=== PATIENT | female | born 1960 | race Hispanic/Latino ===

== ENCOUNTER 2018-04-10 17:17 | Inpatient (IN) | payer MEDICARE, MEDICAID ==
[2018-04-10 18:04] VITALS: BMI 26.9
--- NOTE | 2018-04-10 19:30 | C.PDOC ---
History Of Present Illness 57 year old female with PMHx of MS presents to the ED c/o acute exacerbation of lower back pain. Patient states she think MS exacerbation is causing her back pain. Patient is usually seen at [facility], patient unable to keep her story straight. Patient reports she only uses Dilaudid tablets at home for chronic pain. [place] [employer]TER reviewed showed patient had various prescriptions for oxycodone, ambien, alprazolam and morphine. Discussed case with Dr. Fabian chronic pain specialist in [place] claims patient does have chronic lower back pain issue. Patient also c/o various other issues like tremors associated with her MS exacerbation, lower leg edema. Time Seen by Provider: 04/10/18 18:16 Chief Complaint (Nursing): Back Pain History Per: Patient History/Exam Limitations: no limitations Onset/Duration Of Symptoms: Days Current Symptoms Are (Timing): Still Present Quality Of Discomfort: "Pain" Previous Symptoms: Back Pain Recent travel outside of the [place]: No Additional History Per: Patient Past Medical History Reviewed: Historical Data, Nursing Documentation, Vital Signs Vital Signs: Last Vital Signs Temp 98 F 04/10/18 18:04 Pulse 73 04/10/18 18:04 Resp 18 04/10/18 18:04 BP 132/86 04/10/18 18:04 Pulse Ox 95 04/10/18 18:04 - Medical History PMH: Anxiety, Depression, HTN, Multiple Sclerosis Surgical History: No Surg Hx Family History: States: Unknown Family Hx - Social History Hx Alcohol Use: No Hx Substance Use: No - Immunization History Hx Tetanus Toxoid Vaccination: Yes Hx Influenza Vaccination: Yes Hx Pneumococcal Vaccination: Yes Review Of Systems Constitutional: Negative for: Fever, Chills Cardiovascular: Negative for: Chest Pain, Palpitations Respiratory: Negative for: Shortness of Breath Gastrointestinal: Negative for: Nausea, Vomiting, Abdominal Pain Musculoskeletal: Positive for: Back Pain Skin: Negative for: Rash Neurological: Negative for: Weakness, Numbness, Headache, Dizziness Physical Exam - Physical Exam Appears: Non-toxic, No Acute Distress Skin: Normal Color, Warm, Dry Head: Atraumatic, Normacephalic Eye(s): bilateral: Normal Inspection Oral Mucosa: Moist Neck: Normal ROM, Supple Chest: Symmetrical Cardiovascular: Rhythm Regular Respiratory: Normal Breath Sounds, No Rales, No Rhonchi, No Wheezing Gastrointestinal/Abdominal: Soft, No Tenderness, No Guarding, No Rebound Back: Normal Inspection Extremity: Normal ROM, No Tenderness, No Swelling Neurological/Psych: Oriented x3, Normal Speech, Normal Cognition Gait: Steady ED Course And Treatment - Laboratory Results Result Diagrams: 04/10/18 19:36 04/10/18 21:18 O2 Sat by Pulse Oximetry: 95 (ON RA) Pulse Ox Interpretation: Normal Progress Note: Plan: - morphine 4 mg IVP. - EKG. - Labs. - Solumedrol 250 mg IVP Medical Decision Making Medical Decision Making: acute on chronic lower back pain vs MS exacerbation Pt wants immediate transfer to another hospital (usually goes to [place]) unless Dilaudid IV is provided pt somnolent and asleep during multiple revisits. Disposition Doctor Will See Patient In The: Hospital Counseled Patient/Family Regarding: Studies Performed, Diagnosis - Disposition Disposition: HOSPITALIZED Disposition Time: 22:15 Condition: GOOD Forms: [facility] (Turkish) - Clinical Impression Clinical Impression: Low back pain - Scribe Statement The provider has reviewed the documentation as recorded by the Scribe Davide Comer All medical record entries made by the Scribe were at my direction and personally dictated by me. I have reviewed the chart and agree that the record accurately reflects my personal performance of the history, physical exam, medical decision making, and the department course for this patient. I have also personally directed, reviewed, and agree with the discharge instructions and disposition.
[2018-04-10 19:39] LABS: BASO % 0.7 % (0.0-2.0); EOS # 0.5 K/uL (0.0-0.7); EOS % 7.7 % (0.0-4.0); HEMOGLOBIN 14.8 g/dL (11.0-16.0); LYMPH # 3.1 K/uL (1.0-4.3); LYMPH % 47.2 % (20.0-40.0); MEAN CELL VOLUME 87.8 fL (81.0-99.0); MEAN CORPUSCULAR HEMOGLOBIN 30.1 pg (27.0-31.0); MEAN CORPUSCULAR HGB CONC 34.3 g/dL (33.0-37.0); MEAN PLATELET VOLUME 8.9 fL (7.2-11.7); MONO # 0.5 K/uL (0.0-0.8); MONO % 7.4 % (0.0-10.0); NEUT # 2.4 K/uL (1.8-7.0); NRBC % 0.1 % (0.0-2.0); RBC 4.93 Mil/uL (3.80-5.20); RED CELL DISTRIBUTION WIDTH 13.8 % (11.5-14.5); WHITE BLOOD COUNT 6.5 K/uL (4.8-10.8)
[2018-04-10] MEDS ORDERED: Morphine 4 MG/ML VIAL ONE (19:39)
[2018-04-10 21:36] LABS: ALB/GLOB RATIO 1.6 (1.0-2.1); ALT/SGPT 26 U/L (9-52); AST/SGOT 26 U/L (14-36); BLOOD UREA NITROGEN 12 mg/dL (7-17); CALCIUM 8.7 mg/dl (8.6-10.4); GFR NON-AFRICAN AMERICAN > 60
--- NOTE | 2018-04-10 23:42 | CP.PCM.HP ---
History of Present Illness - History of Present Illness History of Present Illness: 57 year old female with PMHx of MS presents to the ED c/o acute exacerbation of lower back pain. Patient states she think MS exacerbation is causing her back pain. Patient is usually seen at [facility]. Patient reports she only uses Dilaudid tablets at home for chronic pain. [place] AIRLINE PILOT reviewed showed patient had various prescriptions for oxycodone, ambien, alprazolam and morphine patient was also seen last year in the emergency room of [facility] for back pain x-rays were negative for any fracture and during that time patient was also on multiple narcotics and tranquilizers. This is the first admission of this patient in this hospital patient also has a history of hypertension and history of hip replacement since then patient is complaining of pain in the hip and back Review of Systems - Review of Systems All systems: reviewed and no additional remarkable complaints except (back pain) Past Patient History - Past Social History Smoking Status: Never Smoked - CARDIAC Hx Hypertension: Yes - NEUROLOGICAL Hx Multiple Sclerosis: Yes - ENDOCRINE/METABOLIC Hx Endocrine Disorders: Yes Hx Diabetes Mellitus Type 2: Yes - HEMATOLOGICAL/ONCOLOGICAL Hx Blood Disorders: No - MUSCULOSKELETAL/RHEUMATOLOGICAL Hx Musculoskeletal Disorders: Yes Hx Falls: Yes - PSYCHIATRIC Hx Anxiety: Yes Hx Depression: Yes Hx Substance Use: No - SURGICAL HISTORY Hx Surgeries: Yes Hx Musculoskeletal Surgery: Yes (left hip sx) Hx Orthopedic Surgery: Yes (R hip) - ANESTHESIA Hx Anesthesia: Yes Hx Anesthesia Reactions: No Hx Malignant Hyperthermia: No Meds Allergies/Adverse Reactions: Allergies Allergy/AdvReac Type Severity Reaction Status Date / Time glatiramer (copolymer 1) Allergy Mild RASH Verified 04/10/18 18:04 [From Copaxone] Physical Exam - Constitutional Appears: Well - Head Exam Head Exam: ATRAUMATIC, NORMAL INSPECTION, NORMOCEPHALIC - Eye Exam Eye Exam: EOMI, Normal appearance, PERRL - ENT Exam ENT Exam: Mucous Membranes Moist, Normal Exam - Neck Exam Neck exam: Positive for: Normal Inspection - Respiratory Exam Respiratory Exam: Clear to Auscultation Bilateral, NORMAL BREATHING PATTERN - Cardiovascular Exam Cardiovascular Exam: REGULAR RHYTHM - GI/Abdominal Exam GI & Abdominal Exam: Normal Bowel Sounds, Soft. absent: Tenderness - Extremities Exam Extremities exam: Positive for: full ROM. Negative for: calf tenderness, pedal pulses present - Back Exam Back exam: paraspinal tenderness. absent: CVA tenderness (L), CVA tenderness (R) Results - Vital Signs Recent Vital Signs: Last Vital Signs Temp 98 F 04/10/18 18:04 Pulse 73 04/10/18 18:04 Resp 18 04/10/18 18:04 BP 132/86 04/10/18 18:04 Pulse Ox 95 04/10/18 22:16 - Labs Result Diagrams: 04/10/18 19:36 04/10/18 21:18 Labs: Laboratory Results - last 24 hr 04/10/18 04/10/18 04/10/18 19:36 19:36 21:18 WBC 6.5 RBC 4.93 Hgb 14.8 Hct 43.2 MCV 87.8 MCH 30.1 MCHC 34.3 RDW 13.8 Plt Count 194 MPV 8.9 Neut % (Auto) 37.0 L Lymph % (Auto) 47.2 H [place] % (Auto) 7.4 Eos % (Auto) 7.7 H Baso % (Auto) 0.7 Neut # (Auto) 2.4 Lymph # (Auto) 3.1 [place] # (Auto) 0.5 Eos # (Auto) 0.5 Baso # (Auto) 0.0 Sodium Cancelled 138 Potassium Cancelled 3.9 Chloride Cancelled 104 Carbon Dioxide Cancelled 26 Anion Gap Cancelled 11 BUN Cancelled 12 Creatinine Cancelled 0.7 Est GFR ( Amer) Cancelled > 60 Est GFR (Non-Af Amer) Cancelled > 60 Random Glucose Cancelled 96 Calcium Cancelled 8.7 Total Bilirubin Cancelled 0.4 AST Cancelled 26 ALT Cancelled 26 Alkaline Phosphatase Cancelled 86 Troponin I Cancelled < 0.0120 NT-Pro-B Natriuret Pep Cancelled Total Protein Cancelled 6.5 Albumin Cancelled 4.0 Globulin Cancelled 2.5 Albumin/Globulin Ratio Cancelled 1.6 Assessment & Plan (1) Low back pain Status: Acute (2) Chronic left hip pain Status: Acute (3) Narcotic abuse, continuous Status: Chronic
[2018-04-11] MEDS ORDERED: Morphine 4 MG/ML VIAL ONE ×3 (01:44→09:18)
[2018-04-11 08:24] VITALS: RESP 20
--- NOTE | 2018-04-11 08:32 | RAD ---
Date of service: 04/10/2018 HISTORY: SOB COMPARISON: None available. FINDINGS: LUNGS: No active pulmonary disease. PLEURA: No significant pleural effusion identified, no pneumothorax apparent. CARDIOVASCULAR: Calcific atherosclerotic changes are seen related to the thoracic aorta. Normal cardiac size. No pulmonary vascular congestion. OSSEOUS STRUCTURES: No significant abnormalities. VISUALIZED UPPER ABDOMEN: Normal. OTHER FINDINGS: None. IMPRESSION: No acute infiltrate appreciated. No pulmonary vascular congestion.
[2018-04-11] MEDS: Morphine 4 MG/ML VIAL IVP PRN ×4 (09:17→23:18)
[2018-04-11] MEDS: diltiaZEM 180 mg/24 Hours CD Cap PO SCH (10:36)
[2018-04-11] MEDS ORDERED: Midazolam 2 MG/2 ML VIAL ONE (14:21)
[2018-04-11] MEDS: Enoxaparin 40 mg Syringe SC SCH (19:25)
--- NOTE | 2018-04-12 05:50 | CARD ---
APPROVED REPORT Date of service: 04/10/2018 EKG Measurement Heart [id number] <Conclusion> Normal sinus rhythm Normal ECG
[2018-04-12] MEDS: Morphine 4 MG/ML VIAL IVP PRN ×2 (06:22→10:52)
--- NOTE | 2018-04-12 08:31 | CP.PCM.CON ---
History of Present Illness - History of Present Illness History of Present Illness: Consult requested by Dr. Anderson for management of acute on chronic pain. Patient complains of worsening headache and lower back pain as a result of MS flareup. Currently 10/10 intensity uncontrolled by her home narcotics. Patient states that at home, pain is usually 8-9/10 with home medications. Patient also complains of generalized weakness with increasing weakness in lower extremities. [place] SPRING CRATER search revealed MORPHINE SULF ER 30 q12 PRN OXYCODONE HCL 30 MG q4 PRN ZOLPIDEM TARTRATE 10 MG daily PRN ALPRAZOLAM 2 MG q6 PRN Pain medications are prescribed by Curt Fabian MD, . A/P 1. I recommend contacting Dr. Fabian and verify the prescriptions of Ms. Max and then putting her on her home medications to maintain her basal level of opioids and then adding dilaudid 1 mg IV q3 PRN for breakthrough pain to control her pain until she can be adequately discharged to follow up with her pain doctor. Past Patient History - Past Social History Smoking Status: Never Smoked - CARDIAC Hx Hypertension: Yes - NEUROLOGICAL Hx Multiple Sclerosis: Yes - ENDOCRINE/METABOLIC Hx Endocrine Disorders: Yes Hx Diabetes Mellitus Type 2: Yes - HEMATOLOGICAL/ONCOLOGICAL Hx Blood Disorders: No - MUSCULOSKELETAL/RHEUMATOLOGICAL Hx Musculoskeletal Disorders: Yes Hx Falls: Yes - PSYCHIATRIC Hx Anxiety: Yes Hx Depression: Yes Hx Substance Use: No - SURGICAL HISTORY Hx Surgeries: Yes Hx Musculoskeletal Surgery: Yes (left hip sx) Hx Orthopedic Surgery: Yes (R hip) - ANESTHESIA Hx Anesthesia: Yes Hx Anesthesia Reactions: No Hx Malignant Hyperthermia: No Meds Allergies/Adverse Reactions: Allergies Allergy/AdvReac Type Severity Reaction Status Date / Time glatiramer (copolymer 1) Allergy Mild RASH Verified 04/10/18 18:04 [From Copaxone] - Medications Medications: Current Medications Diltiazem HCl (Cardizem Cd) 180 mg PO DAILY [facility] Last Admin: 04/11/18 10:36 Dose: 180 mg Enoxaparin Sodium (Lovenox) 40 mg SC DAILY [facility] Last Admin: 04/11/18 19:25 Dose: 40 mg Furosemide (Lasix) 40 mg PO DAILY [facility] Last Admin: 04/11/18 10:36 Dose: 40 mg Morphine Sulfate (Morphine) 2 mg IVP Q4 PRN PRN Reason: Pain, severe (8-10) Last Admin: 04/12/18 06:22 Dose: 2 mg Tramadol HCl (Ultram) 50 mg PO TID PRN PRN Reason: Pain, moderate (4-7) Last Admin: 04/12/18 01:00 Dose: 50 mg Results - Vital Signs Recent Vital Signs: Last Vital Signs Temp 97.8 F 04/12/18 08:04 Pulse 61 04/12/18 08:04 Resp 20 04/12/18 08:04 BP 124/82 04/12/18 08:04 Pulse Ox 96 04/12/18 08:04 - Labs Result Diagrams: 04/10/18 19:36 04/10/18 21:18
[2018-04-12] MEDS: diltiaZEM 180 mg/24 Hours CD Cap PO SCH (09:43)
[2018-04-12] MEDS: Enoxaparin 40 mg Syringe SC SCH (09:46)
--- NOTE | 2018-04-12 11:45 | CP.PCM.PN ---
Subjective - Date & Time of Evaluation Date of Evaluation: 04/12/18 Time of Evaluation: 11:43 - Subjective Subjective: Patient is still complaining of pain in the back radiating to the left leg from a previous surgery and foot drop. Vital signs are stable physical examination is unchanged No medications ordered by the pain wealth management director, passed on responsibility to outpatient pain management patients Dr. Bhavani DOWD when necessary. Objective - Vital Signs/Intake and Output Vital Signs (last 24 hours): Temp Pulse Resp BP Pulse Ox 97.8 F 61 20 124/82 96 04/12/18 08:04 04/12/18 08:04 04/12/18 08:04 04/12/18 09:44 04/12/18 08:04 Intake and Output: 04/11/18 04/12/18 23:59 11:59 Intake Total 300 Output Total 400 Balance -100 - Medications Medications: Current Medications Diltiazem HCl (Cardizem Cd) 180 mg PO DAILY [facility] Last Admin: 04/12/18 09:43 Dose: Not Given Enoxaparin Sodium (Lovenox) 40 mg SC DAILY [facility] Last Admin: 04/12/18 09:46 Dose: 40 mg Furosemide (Lasix) 40 mg PO DAILY [facility] Last Admin: 04/12/18 09:44 Dose: 40 mg Morphine Sulfate (Morphine) 2 mg IVP Q4 PRN PRN Reason: Pain, severe (8-10) Last Admin: 04/12/18 10:52 Dose: 2 mg Tramadol HCl (Ultram) 50 mg PO TID PRN PRN Reason: Pain, moderate (4-7) Last Admin: 04/12/18 09:44 Dose: 50 mg - Labs Labs: 04/10/18 19:36 04/10/18 21:18 Assessment and Plan (1) Low back pain Status: Acute (2) Chronic left hip pain Status: Acute (3) Narcotic abuse, continuous Status: Chronic
[2018-04-12] MEDS: HYDROmorphone 1 mg/ml ISec IVP PRN ×3 (13:11→19:18)
--- NOTE | 2018-04-12 13:47 | PCM.RRT ---
- Constitutional Appears: Non-toxic - Head Head Exam: ATRAUMATIC, NORMOCEPHALIC - Eyes Eye Exam: EOMI - Respiratory Exam Respiratory Exam: Clear to Ausculation Bilateral, NORMAL BREATHING PATTERN - Cardiovascular Exam Cardiovascular Exam: REGULAR RHYTHM, +S1, +S2 - GI/Abdominal Exam GI & Abdominal Exam: Soft, Normal Bowel Sounds. absent: Tenderness - Neurological Exam Neurological Exam: Alert, Awake, Oriented x3 - Extremities Exam Extremities Exam: Tenderness (Point tenderness left hip and along lateral aspect of the proximal left lower limb). absent: Joint Swelling Additional comments: Old surgical scar on proximal hip. No edema, no bruising. Plan - Assessment of Findings&Treatment Plan [facility] called at 13:19 [facility] note for witnessed fall. Patient states that she went to get out of bed to go to the bathroom and fell. She is adamant she did not hit her head or lose consciousness. Nurse who was in the room endorsed to me that she witness the fall and says that the patient was sitting on the edge of the bed and slid to the ground, and did not hit her head at any point. Nurse stated to me that patient just received a dose of Dilaudid prior to fall. Patient was complaining of severe left hip and leg pain. She denies any pain on the right side, denies any back or shoulder pain. She does have a history of chronic left hip/leg pain and multiple orthopedic surgeries. We will obtain x- rays of the left hip and femur and follow up.
--- NOTE | 2018-04-12 17:34 | RAD ---
PROCEDURE: Left Hip X-ray Radiographs. HISTORY: code star fall + L hip pain COMPARISON: None. FINDINGS: BONES: No fracture. Status post left hip arthroplasty. No evidence of prosthesis loosening. No evidence of dislocation. JOINTS: Left hip arthroplasty SOFT TISSUES: Normal. OTHER FINDINGS: None. IMPRESSION: Status post left hip arthroplasty. No acute fracture
--- NOTE | 2018-04-12 17:35 | RAD ---
Date of service: 04/12/2018 PROCEDURE: Left Femur Radiographs. HISTORY: code star - fall + complaining leg/hip pain COMPARISON: None. TECHNIQUE: AP and Lateral Radiographs of the left femur. FINDINGS: FEMUR: No fracture. Left hip prosthesis noted. No evidence of prosthesis loosening. SOFT TISSUES: Normal. OTHER FINDINGS: None. IMPRESSION: No acute fracture
[2018-04-13] MEDS: HYDROmorphone 1 mg/ml ISec IVP PRN ×7 (01:19→21:10)
[2018-04-13] MEDS: Enoxaparin 40 mg Syringe SC SCH (10:00)
[2018-04-13] MEDS: diltiaZEM 180 mg/24 Hours CD Cap PO SCH (10:01)
--- NOTE | 2018-04-13 11:22 | CP.PCM.PN ---
Subjective - Date & Time of Evaluation Date of Evaluation: 04/13/18 Time of Evaluation: 11:21 - Subjective Subjective: Patient had a fall yesterday. X-rays do not show any fracture Continues to have pain in the left hip going to the left leg pain requiring Toradol and MS. No new weakness of the lower extremities Vital signs are stable Rest of the physical findings normal We will discuss with patient for short-term rehab Objective - Vital Signs/Intake and Output Vital Signs (last 24 hours): Temp Pulse Resp BP Pulse Ox 97.8 F 60 20 123/81 95 04/13/18 08:13 04/13/18 08:13 04/13/18 08:13 04/13/18 10:00 04/13/18 08:13 Intake and Output: 04/12/18 04/13/18 23:59 11:59 Intake Total 660 Output Total 200 Balance 460 - Medications Medications: Current Medications Diltiazem HCl (Cardizem Cd) 180 mg PO DAILY [facility] Last Admin: 04/13/18 10:01 Dose: Not Given Enoxaparin Sodium (Lovenox) 40 mg SC DAILY [facility] Last Admin: 04/13/18 10:00 Dose: 40 mg Furosemide (Lasix) 40 mg PO DAILY [facility] Last Admin: 04/13/18 10:00 Dose: 40 mg Hydromorphone HCl (Dilaudid) 1 mg IVP Q3H PRN PRN Reason: Pain, severe (8-10) Last Admin: 04/13/18 08:04 Dose: 1 mg Tramadol HCl (Ultram) 50 mg PO TID PRN PRN Reason: Pain, moderate (4-7) Last Admin: 04/12/18 18:01 Dose: 50 mg - Labs Labs: 04/10/18 19:36 04/10/18 21:18 Assessment and Plan (1) Low back pain Status: Acute (2) Chronic left hip pain Status: Acute (3) Narcotic abuse, continuous Status: Chronic
[2018-04-14] MEDS: HYDROmorphone 1 mg/ml ISec IVP PRN ×8 (00:11→22:02)
[2018-04-14] MEDS: Enoxaparin 40 mg Syringe SC SCH (09:45)
[2018-04-14] MEDS: diltiaZEM 180 mg/24 Hours CD Cap PO SCH (09:49)
--- NOTE | 2018-04-14 14:30 | CP.PCM.PN ---
Subjective - Date & Time of Evaluation Date of Evaluation: 04/14/18 Time of Evaluation: 14:30 - Subjective Subjective: Patient had a fall yesterday. X-rays do not show any fracture Continues to have pain in the left hip going to the left leg pain requiring Toradol and MS. No new weakness of the lower extremities Vital signs are stable Rest of the physical findings normal We will discuss with patient for short-term rehab Objective - Vital Signs/Intake and Output Vital Signs (last 24 hours): Temp Pulse Resp BP Pulse Ox 97.9 F 53 L 20 105/71 98 04/14/18 08:49 04/14/18 08:49 04/14/18 08:49 04/14/18 09:45 04/14/18 08:49 Intake and Output: 04/14/18 04/14/18 11:59 23:59 Intake Total 180 Balance 180 - Medications Medications: Current Medications Diltiazem HCl (Cardizem Cd) 180 mg PO DAILY [facility] Last Admin: 04/14/18 09:49 Dose: Not Given Enoxaparin Sodium (Lovenox) 40 mg SC DAILY [facility] Last Admin: 04/14/18 09:45 Dose: 40 mg Furosemide (Lasix) 40 mg PO DAILY [facility] Last Admin: 04/14/18 09:45 Dose: 40 mg Hydromorphone HCl (Dilaudid) 1 mg IVP Q3H PRN PRN Reason: Pain, severe (8-10) Last Admin: 04/14/18 12:57 Dose: 1 mg Tramadol HCl (Ultram) 50 mg PO TID PRN PRN Reason: Pain, moderate (4-7) Last Admin: 04/12/18 18:01 Dose: 50 mg - Labs Labs: 04/10/18 19:36 04/10/18 21:18 Assessment and Plan (1) Low back pain Status: Acute (2) Chronic left hip pain Status: Acute (3) Narcotic abuse, continuous Status: Chronic
[2018-04-14 15:28] LABS: SQUAMOUS EPITHIAL 2 /hpf (0-5); URINE BACTERIA RARE (<OCC); URINE BILIRUBIN NEGATIVE (NEGATIVE); URINE BLOOD NEGATIVE (NEGATIVE); URINE CALCIUM OXALATE CRYSTALS FEW /hpf (<OCC); URINE CLARITY Hazy (Clear); URINE COLOR Yellow (YELLOW); URINE GLUCOSE (UA) NORMAL (Normal); URINE LEUKOCYTE ESTERASE TRACE Leu/uL (Negative); URINE PROTEIN NEGATIVE (NEGATIVE); URINE UROBILINOGEN NORMAL mg/dL (0.2-1.0)
[2018-04-15] MEDS: HYDROmorphone 1 mg/ml ISec IVP PRN ×4 (01:03→10:00)
--- NOTE | 2018-04-15 09:10 | CP.PCM.PN ---
Subjective - Date & Time of Evaluation Date of Evaluation: 04/15/18 Time of Evaluation: 09:10 - Subjective Subjective: alert and orientedx3, NAD. Objective - Vital Signs/Intake and Output Vital Signs (last 24 hours): Temp Pulse Resp BP Pulse Ox 97.8 F 77 20 140/85 95 04/14/18 23:39 04/14/18 23:39 04/14/18 23:39 04/14/18 23:39 04/14/18 23:39 Intake and Output: 04/15/18 04/15/18 06:59 18:59 Intake Total 350 240 Balance 350 240 - Medications Medications: Current Medications Diltiazem HCl (Cardizem Cd) 180 mg PO DAILY [facility] Last Admin: 04/14/18 09:49 Dose: Not Given Enoxaparin Sodium (Lovenox) 40 mg SC DAILY [facility] Last Admin: 04/14/18 09:45 Dose: 40 mg Furosemide (Lasix) 40 mg PO DAILY [facility] Last Admin: 04/14/18 09:45 Dose: 40 mg Hydromorphone HCl (Dilaudid) 1 mg IVP Q3H PRN PRN Reason: Pain, severe (8-10) Last Admin: 04/15/18 07:05 Dose: 1 mg Tramadol HCl (Ultram) 50 mg PO TID PRN PRN Reason: Pain, moderate (4-7) Last Admin: 04/12/18 18:01 Dose: 50 mg - Labs Labs: 04/10/18 19:36 04/10/18 21:18 Assessment and Plan - Assessment and Plan (Free Text) Assessment: 57 year old female admitted with MS exacerbation, seen and examined. Alert and orientedx3, denies acute pain. Able to ambulate, willing to go home with her son today. Percocet 15 tabs given until she see her PMD for pain management. Discussed with DR Anderson, plan to discharge home today.
[2018-04-15 09:25] VITALS: BP 118/81; PULSE 61; TEMP 98; O2SAT 96
[2018-04-15] MEDS: Enoxaparin 40 mg Syringe SC SCH ×2 (09:26→09:36)
[2018-04-15] MEDS: diltiaZEM 180 mg/24 Hours CD Cap PO SCH (09:26)
--- NOTE | 2018-04-17 12:37 | CP.PCM.DIS ---
Provider - Provider Date of Admission: 04/12/18 12:49 Attending physician: Shanae Anderson MD Consults: 04/11/18 16:56 Physician Consult Routine Comment: Consulting Provider: Venecia Solis Consulting Physician: Venecia Solis Reason for Consult: pain management 04/14/18 09:34 Case Management Referral Routine Comment: Physician Instructions: recommended by PT Reason For Exam: DERECK evaluation Reason for Referral: Discharge Planning Time Spent in preparation of Discharge (in minutes): 30 Diagnosis - Discharge Diagnosis (1) Low back pain Status: Acute (2) Chronic left hip pain Status: Acute (3) Narcotic abuse, continuous Status: Chronic Hospital Course - Lab Results Lab Results: Micro Results 04/14/18 14:35 Urine,Clean Catch Urine Culture - Final 50-100,000 CFU/ML. MULTIPLE SPECIES. SUGGEST REPEAT SPECIMEN. Most Recent Lab Values WBC 6.5 K/uL (4.8-10.8) 04/10/18 19:36 RBC 4.93 Mil/uL (3.80-5.20) 04/10/18 19:36 Hgb 14.8 g/dL (11.0-16.0) 04/10/18 19:36 Hct 43.2 % (34.0-47.0) 04/10/18 19:36 MCV 87.8 fL (81.0-99.0) 04/10/18 19:36 MCH 30.1 pg (27.0-31.0) 04/10/18 19:36 MCHC 34.3 g/dL (33.0-37.0) 04/10/18 19:36 RDW 13.8 % (11.5-14.5) 04/10/18 19:36 Plt Count 194 K/uL (130-400) 04/10/18 19:36 MPV 8.9 fL (7.2-11.7) 04/10/18 19:36 Neut % (Auto) 37.0 % (50.0-75.0) L 04/10/18 19:36 Lymph % (Auto) 47.2 % (20.0-40.0) H 04/10/18 19:36 Bates % (Auto) 7.4 % (0.0-10.0) 04/10/18 19:36 Eos % (Auto) 7.7 % (0.0-4.0) H 04/10/18 19:36 Baso % (Auto) 0.7 % (0.0-2.0) 04/10/18 19:36 Neut # (Auto) 2.4 K/uL (1.8-7.0) 04/10/18 19:36 Lymph # (Auto) 3.1 K/uL (1.0-4.3) 04/10/18 19:36 Bates # (Auto) 0.5 K/uL (0.0-0.8) 04/10/18 19:36 Eos # (Auto) 0.5 K/uL (0.0-0.7) 04/10/18 19:36 Baso # (Auto) 0.0 K/uL (0.0-0.2) 04/10/18 19:36 Sodium 138 mmol/L (132-148) 04/10/18 21:18 Potassium 3.9 mmol/L (3.6-5.2) 04/10/18 21:18 Chloride 104 mmol/L (98-107) 04/10/18 21:18 Carbon Dioxide 26 mmol/L (22-30) 04/10/18 21:18 Anion Gap 11 (10-20) 04/10/18 21:18 BUN 12 mg/dL (7-17) 04/10/18 21:18 Creatinine 0.7 mg/dL (0.7-1.2) 04/10/18 21:18 Est GFR ( Amer) > 60 04/10/18 21:18 Est GFR (Non-Af Amer) > 60 04/10/18 21:18 POC Glucose (mg/dL) 94 mg/dL (65-110) 04/15/18 07:20 Random Glucose 96 mg/dL (65-105) 04/10/18 21:18 Calcium 8.7 mg/dl (8.6-10.4) 04/10/18 21:18 Total Bilirubin 0.4 mg/dL (0.2-1.3) 04/10/18 21:18 AST 26 U/L (14-36) 04/10/18 21:18 ALT 26 U/L (9-52) 04/10/18 21:18 Alkaline Phosphatase 86 U/L (38-126) 04/10/18 21:18 Troponin I < 0.0120 ng/mL (0.00-0.120) 04/10/18 21:18 NT-Pro-B Natriuret Pep Cancelled 04/10/18 19:36 Total Protein 6.5 g/dL (6.3-8.3) 04/10/18 21:18 Albumin 4.0 g/dL (3.5-5.0) 04/10/18 21:18 Globulin 2.5 gm/dL (2.2-3.9) 04/10/18 21:18 Albumin/Globulin Ratio 1.6 (1.0-2.1) 04/10/18 21:18 Urine Color Yellow (YELLOW) 04/14/18 14:35 Urine Clarity Hazy (Clear) 04/14/18 14:35 Urine pH 5.0 (5.0-8.0) 04/14/18 14:35 Ur Specific [place] 1.015 (1.003-1.030) 04/14/18 14:35 Urine Protein Negative mg/dL (NEGATIVE) 04/14/18 14:35 Urine Glucose (UA) Normal mg/dL (Normal) 04/14/18 14:35 Urine Ketones Negative mg/dL (NEGATIVE) 04/14/18 14:35 Urine Blood Negative (NEGATIVE) 04/14/18 14:35 Urine Nitrate Negative (NEGATIVE) 04/14/18 14:35 Urine Bilirubin Negative (NEGATIVE) 04/14/18 14:35 Urine Urobilinogen Normal mg/dL (0.2-1.0) 04/14/18 14:35 Ur Leukocyte Esterase Trace Itz/uL (Negative) 04/14/18 14:35 Urine WBC (Auto) 3 /hpf (0-5) 04/14/18 14:35 Urine RBC (Auto) 2 /hpf (0-3) 04/14/18 14:35 Ur Squamous Epith Cells 2 /hpf (0-5) 04/14/18 14:35 Calcium Oxalate Crystal Few /hpf (<OCC) H 04/14/18 14:35 Urine Bacteria Rare (<OCC) 04/14/18 14:35 Hyaline Casts 3-5 /lpf (0-2) H 04/14/18 14:35 - Hospital Course Hospital Course: 57 year old female with PMHx of MS presents to the ED c/o acute exacerbation of lower back pain. Patient states she think MS exacerbation is causing her back pain. Patient is usually seen at [facility]. Patient reports she only uses Dilaudid tablets at home for chronic pain. [place] [facility] reviewed showed patient had various prescriptions for oxycodone, ambien, alprazolam and morphine patient was also seen last year in the emergency room of [facility] for back pain x-rays were negative for any fracture and during that time patient was also on multiple narcotics and tranquilizers. This is the first admission of this patient in this hospital patient also has a history of hypertension and history of hip replacement since then patient is complaining of pain in the hip and back Patient received pain management as per the guideline based. Pain management consult was obtained and recommended Toradol every 4 when necessary Patient improved on above therapy will continue demanding more by mouth narcotics. Patient also had a fall and x-ray of the hip did not show any fracture or dislocation or per previous left hip prosthesis As patient's pain has subsided to an acceptable level patient was discharged to be followed by patient's pain management doctor in [facility]. On the day of discharge patient had unchanged foot drop on the left side with no new neurological deficits. Discharge Exam - Head Exam Head Exam: ATRAUMATIC, NORMOCEPHALIC Discharge Plan - Discharge Medications Prescriptions: oxyCODONE/Acetaminophen [Percocet 5/325 mg Tab] 1 ea PO Q6H PRN #15 tab PRN Reason: Pain, Severe (8-10) - Follow Up Plan Condition: GOOD Disposition: HOME/ ROUTINE Instructions: Low Back Pain (DC), Drug Abuse and Drug Addiction (DC), Oxycodone and Acetaminophen Referrals: Shanae Anderson MD [Staff Provider] -
== END 2018-04-15 11:26 | disposition home or self-care (01) | DRG 552 ==
LOC: C.ER 17:17 → C.9E 22:16 → C.3T 04-11 13:13 → OBSVTOIN 04-12 12:49
PROVIDERS: ADMIT Internal Medicine Cardiovascular Disease; ATTEND Internal Medicine Cardiovascular Disease
DX: M54.5 Low back pain (principal); G89.29 Other chronic pain; M25.552 Pain in left hip; G35 Multiple sclerosis; F11.10 Opioid abuse, uncomplicated; E11.9 Type 2 diabetes mellitus without complications; I10 Essential (primary) hypertension; Z96.649 Presence of unspecified artificial hip joint; M21.372 Foot drop, left foot; W06.XXXA Fall from bed, initial encounter; Y92.230 Patient room in hospital as the place of occurrence of the external cause